=== PATIENT | male | born 1965 | race Caucasian/White ===

== ENCOUNTER 2017-02-14 23:37 | Emergency (ER) | payer SELFPAY ==
--- NOTE | 2017-02-14 23:59 | C.PDOC ---
History Of Present Illness 51 year old male brought in by EMS after being found intoxicated in public. Patient admits to drinking tonight; denies any injuries or physical complaints. Chief Complaint (Nursing): Substance Abuse History Per: Patient History/Exam Limitations: no limitations Onset/Duration Of Symptoms: Hrs Current Symptoms Are (Timing): Still Present Suicide/Self Injury Attempted (Context): None Modifying Factor(s): Alcohol Associated Symptoms: denies: Depression, Suicidal Thoughts, Suicidal Plan Involuntary Hold By: None Recent travel outside of the [place]: No Past Medical History Reviewed: Historical Data, Nursing Documentation, Vital Signs Vital Signs: Last Vital Signs Temp 98 F 02/15/17 03:53 Pulse 90 02/15/17 03:53 Resp 16 02/15/17 03:53 BP 160/86 H 02/15/17 03:53 Pulse Ox 98 02/15/17 03:53 - Medical History PMH: Asthma, HTN Surgical History: Appendectomy Family History: States: Unknown Family Hx - Social History Hx Tobacco Use: Yes Hx Alcohol Use: Yes Hx Substance Use: No - Immunization History Hx Tetanus Toxoid Vaccination: No Hx Influenza Vaccination: No Hx Pneumococcal Vaccination: No Review Of Systems Constitutional: Negative for: Fever, Chills Gastrointestinal: Negative for: Nausea, Vomiting, Diarrhea Physical Exam - Physical Exam Appears: Non-toxic, No Acute Distress, Other (ETOH on breath, arousable) Skin: Normal Color, Warm, Dry Head: Atraumatic, Normacephalic Eye(s): bilateral: Normal Inspection, PERRL, EOMI Oral Mucosa: Moist Neck: Normal, No Midline Cervical Tenderness, No Paracervical Tenderness, Supple Chest: Symmetrical Cardiovascular: Rhythm Regular Respiratory: Normal Breath Sounds, No Rales, No Rhonchi, No Wheezing Gastrointestinal/Abdominal: Soft, No Tenderness Neurological/Psych: Oriented x3, Normal Speech, Other (No focal deficits) ED Course And Treatment O2 Sat by Pulse Oximetry: 97 (Room air) Pulse Ox Interpretation: Normal Progress Note: Blood work and urinalysis ordered. Disposition Counseled Patient/Family Regarding: Diagnosis - Disposition Referrals: [facility] at [facility] [Outside] Disposition: HOME/ ROUTINE Disposition Time: 04:45 Condition: STABLE Instructions: Abuse of Alcohol (ED) Forms: [facility] (Yoruba) - POA Present On Arrival: None - Clinical Impression Clinical Impression: Alcohol abuse - Scribe Statement The provider has reviewed the documentation as recorded by the Scriblisa Lucas All medical record entries made by the Scribe were at my direction and personally dictated by me. I have reviewed the chart and agree that the record accurately reflects my personal performance of the history, physical exam, medical decision making, and the department course for this patient. I have also personally directed, reviewed, and agree with the discharge instructions and disposition.
[2017-02-15 04:46] VITALS: O2SAT 97
[2017-02-15 04:50] VITALS: BP 156/89; PULSE 88; RESP 18; TEMP 98.5
== END 2017-02-15 04:53 | disposition home or self-care (01) ==
LOC: C.ER 23:37
DX: F10.10 Alcohol abuse, uncomplicated (principal); Y90.9 Presence of alcohol in blood, level not specified

== ENCOUNTER 2017-02-18 15:43 | Emergency (ER) | payer SELFPAY ==
--- NOTE | 2017-02-18 16:52 | C.PDOC ---
History Of Present Illness 51 year old male with Hx of ETOH abuse BIBA for alcohol intoxication. Patient admits to drinking today; denies falls or injuries. Time Seen by Provider: 02/18/17 16:07 Chief Complaint (Nursing): Substance Abuse History Per: Patient History/Exam Limitations: intoxication Current Symptoms Are (Timing): Still Present Suicide/Self Injury Attempted (Context): None Modifying Factor(s): Alcohol Severity: Moderate Associated Symptoms: denies: Depression, Suicidal Thoughts, Suicidal Plan Involuntary Hold By: Emergency Physician Past Medical History Reviewed: Historical Data, Nursing Documentation, Vital Signs Vital Signs: Last Vital Signs Temp 97.9 F 02/18/17 16:54 Pulse 107 H 02/18/17 16:54 Resp 20 02/18/17 16:54 BP 104/64 02/18/17 16:54 Pulse Ox 94 L 02/18/17 18:54 - Medical History PMH: Asthma, HTN Surgical History: Appendectomy Family History: States: No Known Family Hx - Social History Hx Tobacco Use: Yes Hx Alcohol Use: Yes Hx Substance Use: No - Immunization History Hx Tetanus Toxoid Vaccination: No Hx Influenza Vaccination: No Hx Pneumococcal Vaccination: No Review Of Systems Except As Marked, All Systems Reviewed And Found Negative. Constitutional: Negative for: Fever, Chills Cardiovascular: Negative for: Chest Pain, Palpitations Respiratory: Negative for: Cough, Shortness of Breath Gastrointestinal: Negative for: Nausea, Vomiting, Abdominal Pain Skin: Negative for: Rash Neurological: Negative for: Weakness, Numbness Psych: Positive for: Other (alcohol intoxication). Negative for: Depression, Suicidal ideation Physical Exam - Physical Exam Appears: Non-toxic, Unkempt, Other ( ETOH smell on breath, appears intoxicated) Skin: Normal Color, Warm, Dry Head: Atraumatic, Normacephalic Eye(s): bilateral: Normal Inspection (right upper eyelid stye) Oral Mucosa: Moist Neck: Supple Cardiovascular: Rhythm Regular (Mild tachycardic) Respiratory: Normal Breath Sounds, No Rales, No Rhonchi, No Wheezing Gastrointestinal/Abdominal: Normal Exam, Bowel Sounds, Soft, No Tenderness Extremity: Normal ROM, No Swelling, No Other (No tremors) Extremity: Bilateral: Atraumatic Neurological/Psych: Other (awake, alert, intoxicated, moving all 4 extremities spontaneously) ED Course And Treatment O2 Sat by Pulse Oximetry: 94 (On RA) Pulse Ox Interpretation: Normal Progress Note: Accucheck ordered and reviewed - WNL. Patient pending sobriety. Disposition - Disposition Disposition Time: 19:00 Condition: STABLE Forms: [facility] (Sinhala) - Clinical Impression Clinical Impression: Alcohol intoxication - Scribe Statement The provider has reviewed the documentation as recorded by the Scribe Zeke Manzano All medical record entries made by the Scribe were at my direction and personally dictated by me. I have reviewed the chart and agree that the record accurately reflects my personal performance of the history, physical exam, medical decision making, and the department course for this patient. I have also personally directed, reviewed, and agree with the discharge instructions and disposition. Physician Patient Turnover Patient Signed Over To: Michelle Franklin Handoff Comments: pending sobriety
[2017-02-18 16:55] VITALS: TEMP 97.9
[2017-02-18 20:32] VITALS: BP 100/60; PULSE 97; RESP 14; O2SAT 96
== END 2017-02-18 21:05 | disposition home or self-care (01) ==
LOC: C.ER 15:43
DX: F10.129 Alcohol abuse with intoxication, unspecified (principal); Y90.9 Presence of alcohol in blood, level not specified

== ENCOUNTER 2017-02-20 16:52 | Emergency (ER) | payer SELFPAY ==
--- NOTE | 2017-02-20 18:21 | C.PDOC ---
History Of Present Illness 51 year old male brought to ED via BLS for alcohol intoxication. As per BLS, pt was found by restaurant head machinist laying on the side walk, then head machinist brought the patient into his restaurant and fed him. However, pt refused to leave after he was finished eating, and police was called. Patient appears intoxicated - denies any physical complaints at this time. Time Seen by Provider: 02/20/17 17:09 Chief Complaint (Nursing): Substance Abuse History Per: Patient, EMS History/Exam Limitations: intoxication Onset/Duration Of Symptoms: Unknown Current Symptoms Are (Timing): Still Present Suicide/Self Injury Attempted (Context): None Modifying Factor(s): Alcohol Severity: Moderate Associated Symptoms: denies: Suicidal Thoughts, Suicidal Plan Past Medical History Reviewed: Historical Data, Nursing Documentation, Vital Signs Vital Signs: Last Vital Signs Temp 97.3 F L 02/20/17 17:06 Pulse 96 H 02/20/17 17:06 Resp 18 02/20/17 17:06 BP 140/95 H 02/20/17 17:06 Pulse Ox 97 02/20/17 18:25 - Medical History PMH: Asthma, HTN Surgical History: Appendectomy Family History: States: No Known Family Hx - Social History Hx Tobacco Use: Yes Hx Alcohol Use: Yes Hx Substance Use: No - Immunization History Hx Tetanus Toxoid Vaccination: No Hx Influenza Vaccination: No Hx Pneumococcal Vaccination: No Review Of Systems Except As Marked, All Systems Reviewed And Found Negative. Constitutional: Negative for: Fever, Chills Cardiovascular: Negative for: Chest Pain, Palpitations Respiratory: Negative for: Cough, Shortness of Breath Gastrointestinal: Negative for: Nausea, Vomiting, Abdominal Pain Neurological: Negative for: Headache, Dizziness Psych: Positive for: Other (alcohol intoxication). Negative for: Suicidal ideation Physical Exam - Physical Exam Appears: Well, Non-toxic, No Acute Distress, Unkempt, Other (EtOH on breath, appears intoxicated ) Skin: Normal Color, Warm, Dry Head: Atraumatic, Normacephalic Eye(s): bilateral: Normal Inspection Oral Mucosa: Moist Cardiovascular: Rhythm Regular Respiratory: Normal Breath Sounds, No Rales, No Rhonchi, No Wheezing Gastrointestinal/Abdominal: Normal Exam, Bowel Sounds, Soft, No Tenderness Extremity: Normal ROM, No Deformity Neurological/Psych: Other (intoxicated, moving all 4 extremities spontaneously ) ED Course And Treatment O2 Sat by Pulse Oximetry: 97 (RA) Pulse Ox Interpretation: Normal Progress Note: Accucheck ordered and WNL. Patient pending sobriety. Disposition - Disposition Disposition Time: 19:00 Condition: STABLE Forms: [facility] (Algerian) - Clinical Impression Clinical Impression: Alcohol intoxication - Scribe Statement The provider has reviewed the documentation as recorded by the Scribe Benito Mai All medical record entries made by the Scribe were at my direction and personally dictated by me. I have reviewed the chart and agree that the record accurately reflects my personal performance of the history, physical exam, medical decision making, and the department course for this patient. I have also personally directed, reviewed, and agree with the discharge instructions and disposition. Physician Patient Turnover Patient Signed Over To: Geo Hassan Handoff Comments: pending sobriety
[2017-02-21 03:54] VITALS: BP 109/73; PULSE 92; RESP 16; TEMP 98.5; O2SAT 97
== END 2017-02-21 05:40 | disposition home or self-care (01) ==
LOC: C.ER 16:52
DX: F10.129 Alcohol abuse with intoxication, unspecified (principal); Y90.9 Presence of alcohol in blood, level not specified

== ENCOUNTER 2017-02-24 17:31 | Emergency (ER) | payer SELFPAY ==
--- NOTE | 2017-02-24 18:17 | C.PDOC ---
History Of Present Illness <Corona Irene - Last Filed: 02/24/17 18:16> <Geo Hassan - Last Filed: 03/02/17 14:28> 51 y/o male brought to ED by ems in an acute ETOH intoxication. Patient admits to drinking ETOH today and states he normally does everyday. No physical complaints at this time. (Corona Irene) History Per: Patient History/Exam Limitations: no limitations Onset/Duration Of Symptoms: Hrs Current Symptoms Are (Timing): Still Present Suicide/Self Injury Attempted (Context): None Modifying Factor(s): Alcohol <Corona Irene - Last Filed: 02/24/17 18:16> <Geo Hassan - Last Filed: 03/02/17 14:28> Time Seen by Provider: 02/24/17 18:08 Chief Complaint (Nursing): Substance Abuse Past Medical History Reviewed: Historical Data, Nursing Documentation, Vital Signs - Medical History PMH: Asthma, HTN Surgical History: Appendectomy Family History: States: No Known Family Hx - Social History Hx Tobacco Use: Yes Hx Alcohol Use: Yes Hx Substance Use: No - Immunization History Hx Tetanus Toxoid Vaccination: No Hx Influenza Vaccination: No Hx Pneumococcal Vaccination: No <Corona Irene - Last Filed: 02/24/17 18:16> Vital Signs: Last Vital Signs Temp 98 F 02/25/17 05:38 Pulse 79 02/25/17 05:38 Resp 16 02/25/17 05:38 BP 132/68 02/25/17 05:38 Pulse Ox 98 02/25/17 05:38 Review Of Systems Constitutional: Negative for: Fever, Chills Cardiovascular: Negative for: Chest Pain Respiratory: Negative for: Shortness of Breath Gastrointestinal: Negative for: Nausea, Vomiting Skin: Negative for: Rash Neurological: Negative for: Weakness, Numbness Psych: Negative for: Anxiety, Suicidal ideation, Withdrawal <Corona Irene - Last Filed: 02/24/17 18:16> Physical Exam - Physical Exam Appears: Non-toxic, No Acute Distress, Other (Poor hygiene, ETOH on breath ) Skin: Warm, Dry, No Rash Head: Atraumatic, Normacephalic Eye(s): bilateral: Normal Inspection Oral Mucosa: Moist Neck: Normal ROM, Supple Chest: Symmetrical Cardiovascular: Rhythm Regular Respiratory: Normal Breath Sounds, No Rales, No Rhonchi, No Wheezing Gastrointestinal/Abdominal: Soft, No Tenderness, No Guarding, No Rebound Extremity: Tenderness (bilateral knees secondary to chronic arthritis ), Capillary Refill (<2 seconds), No Deformity, No Swelling Pulses: Left Dorsalis Pedis: Normal, Right Dorsalis Pedis: Normal Neurological/Psych: Oriented x3, Normal Motor, Normal Sensation Gait: With Assistance (cane) <Corona Irene - Last Filed: 02/24/17 18:16> ED Course And Treatment O2 Sat by Pulse Oximetry: 96 (RA) Pulse Ox Interpretation: Normal <Corona Irene - Last Filed: 02/24/17 18:16> Disposition <Corona Irene - Last Filed: 02/24/17 18:16> Counseled Patient/Family Regarding: Studies Performed, Diagnosis, Need For Followup - Disposition Disposition Time: 06:00 <Geo Hassan - Last Filed: 03/02/17 14:28> - Disposition Disposition: HOME/ ROUTINE Condition: FAIR Instructions: Alcohol Intoxication (DC) Forms: [employer] (Yi) - Clinical Impression Clinical Impression: Alcohol intoxication - Scribe Statement The provider has reviewed the documentation as recorded by the Scribe <Corona Irene - Last Filed: 02/24/17 18:16> <Geo Hassan - Last Filed: 03/02/17 14:28> - Scribe Statement Rigoberto Fitzpatrick All medical record entries made by the Scribe were at my direction and personally dictated by me. I have reviewed the chart and agree that the record accurately reflects my personal performance of the history, physical exam, medical decision making, and the department course for this patient. I have also personally directed, reviewed, and agree with the discharge instructions and disposition. (Corona Irene)
[2017-02-24 22:18] VITALS: RESP 16; TEMP 98
[2017-02-25 05:39] VITALS: BP 132/68; PULSE 79; O2SAT 98
== END 2017-02-25 05:39 | disposition home or self-care (01) ==
LOC: C.ER 17:31
DX: F10.129 Alcohol abuse with intoxication, unspecified (principal); Y90.9 Presence of alcohol in blood, level not specified

== ENCOUNTER 2017-02-26 20:34 | Emergency (ER) | payer SELFPAY ==
[2017-02-26 21:16] VITALS: TEMP 98.9
--- NOTE | 2017-02-26 21:41 | C.PDOC ---
History Of Present Illness 51yo male, presents to ED with complaints of bilateral knee pain. Denies any injury or trauma. Also reports he is not drunk. Of note, patient is able to ambulate with a cane. He has no other medical complaints. Time Seen by Provider: 02/26/17 21:17 Chief Complaint (Nursing): Lower Extremity Problem/Injury History Per: Patient History/Exam Limitations: no limitations Onset/Duration Of Symptoms: Hrs Current Symptoms Are (Timing): Still Present Past Medical History Reviewed: Historical Data, Nursing Documentation, Vital Signs Vital Signs: Last Vital Signs Temp 98.9 F 02/26/17 21:13 Pulse 111 H 02/26/17 21:13 Resp 20 02/26/17 21:13 BP 129/77 02/26/17 21:13 Pulse Ox 95 02/26/17 21:53 - Medical History PMH: Asthma, HTN Surgical History: Appendectomy Family History: States: No Known Family Hx - Social History Hx Tobacco Use: Yes Hx Alcohol Use: Yes Hx Substance Use: No - Immunization History Hx Tetanus Toxoid Vaccination: No Hx Influenza Vaccination: No Hx Pneumococcal Vaccination: No Review Of Systems Except As Marked, All Systems Reviewed And Found Negative. Musculoskeletal: Positive for: Leg Pain (bilateral knee pain, no sign of acute injury) Physical Exam - Physical Exam Appears: No Acute Distress, Other (poor hygiene) Skin: Normal Color, Warm Head: Atraumatic, Normacephalic Nose: Normal Chest: Symmetrical Cardiovascular: Other (mild tachycardia) Respiratory: Normal Breath Sounds, No Accessory Muscle Use Extremity: Other (bilateral knee pain, ambulates with cane) ED Course And Treatment O2 Sat by Pulse Oximetry: 95 (RA) Pulse Ox Interpretation: Normal Progress Note: ambulatory' stable for discharge. Disposition - Disposition Disposition: HOME/ ROUTINE Disposition Time: 06:00 Condition: IMPROVED Forms: [facility] ([place]atican Citizen) - Clinical Impression Clinical Impression: Alcoholism, Arthritis, Alcohol abuse - Scribe Statement The provider has reviewed the documentation as recorded by the Alberto Marie Provider Attestation: All medical record entries made by the Ayeshaibe were at my direction and personally dictated by me. I have reviewed the chart and agree that the record accurately reflects my personal performance of the history, physical exam, medical decision making, and the department course for this patient. I have also personally directed, reviewed, and agree with the discharge instructions and disposition.
[2017-02-27 06:21] VITALS: RESP 18
[2017-02-27 06:22] VITALS: BP 132/66; PULSE 68; O2SAT 98
== END 2017-02-27 06:21 | disposition home or self-care (01) ==
LOC: C.ER 20:34
DX: M13.862 Other specified arthritis, left knee (principal); M13.861 Other specified arthritis, right knee; F10.20 Alcohol dependence, uncomplicated; Y90.9 Presence of alcohol in blood, level not specified

== ENCOUNTER 2017-03-06 20:00 | Emergency (ER) | payer SELFPAY ==
--- NOTE | 2017-03-06 20:44 | C.PDOC ---
History Of Present Illness 51 year old male is brought to the ED by EMS because he was found sleeping in a bank. Patient denies any SOB, CP, nausea, vomit, diarrhea, dizziness, Si/HI, hallucinations. Upon arrival patient is intoxicated with ETOH on his breath. Time Seen by Provider: 03/06/17 20:29 Chief Complaint (Nursing): Substance Abuse History Per: Patient, EMS History/Exam Limitations: intoxication Onset/Duration Of Symptoms: Hrs Current Symptoms Are (Timing): Still Present Suicide/Self Injury Attempted (Context): None Modifying Factor(s): Alcohol Associated Symptoms: denies: Depression, Suicidal Thoughts, Suicidal Plan Involuntary Hold By: None Recent travel outside of the [place]: No Additional History Per: Patient, EMS Past Medical History Reviewed: Historical Data, Nursing Documentation, Vital Signs Vital Signs: Last Vital Signs Temp 97.7 F 03/07/17 00:00 Pulse 81 03/07/17 00:00 Resp 18 03/07/17 00:00 BP 141/82 03/07/17 00:00 Pulse Ox 98 03/07/17 00:00 - Medical History PMH: Asthma, HTN Surgical History: Appendectomy Family History: States: Unknown Family Hx - Social History Hx Tobacco Use: Yes Hx Alcohol Use: Yes Hx Substance Use: No - Immunization History Hx Tetanus Toxoid Vaccination: No Hx Influenza Vaccination: No Hx Pneumococcal Vaccination: No Review Of Systems Constitutional: Negative for: Fever, Chills Cardiovascular: Negative for: Chest Pain, Palpitations Respiratory: Negative for: Cough, Shortness of Breath Gastrointestinal: Negative for: Nausea, Vomiting, Abdominal Pain Skin: Negative for: Rash Neurological: Negative for: Weakness, Numbness Physical Exam - Physical Exam Appears: Non-toxic, Other (Intoxicated) Skin: Normal Color, Warm, Dry Head: Atraumatic, Normacephalic Nose: No Discharge Oral Mucosa: Moist Neck: Normal ROM, Supple Chest: Symmetrical Cardiovascular: Rhythm Regular, No Murmur Respiratory: Normal Breath Sounds, No Rales, No Rhonchi, No Wheezing Gastrointestinal/Abdominal: Soft, No Tenderness Extremity: Normal ROM, No Pedal Edema, No Calf Tenderness, No Deformity, No Swelling Neurological/Psych: Oriented x3 Gait: Steady ED Course And Treatment O2 Sat by Pulse Oximetry: 98 (On RA) Pulse Ox Interpretation: Normal Disposition - Disposition Referrals: Non [facility] Provider, [Primary Care Provider] - Disposition: HOME/ ROUTINE Disposition Time: 06:00 Condition: IMPROVED Forms: [facility] (Costa Rican), Accompanied To ED By: - Clinical Impression Clinical Impression: Alcoholism - Scribe Statement The provider has reviewed the documentation as recorded by the Scribe Zeke Manzano All medical record entries made by the Scribe were at my direction and personally dictated by me. I have reviewed the chart and agree that the record accurately reflects my personal performance of the history, physical exam, medical decision making, and the department course for this patient. I have also personally directed, reviewed, and agree with the discharge instructions and disposition.
[2017-03-07 05:33] VITALS: RESP 20
[2017-03-07 06:48] VITALS: BP 146/72; PULSE 88; TEMP 98.3; O2SAT 97
== END 2017-03-07 06:23 | disposition home or self-care (01) ==
LOC: SUPCPDRO 20:00 → C.ER 20:00
DX: F10.20 Alcohol dependence, uncomplicated (principal); Y90.9 Presence of alcohol in blood, level not specified

== ENCOUNTER 2017-03-08 18:16 | Emergency (ER) | payer SELFPAY ==
--- NOTE | 2017-03-08 19:12 | C.PDOC ---
History Of Present Illness Patient presents to the ER via EMS for public intoxication. Denies physical complaints at this time. Time Seen by Provider: 03/08/17 19:11 Chief Complaint (Nursing): Substance Abuse History Per: Patient History/Exam Limitations: no limitations Onset/Duration Of Symptoms: Hrs Current Symptoms Are (Timing): Still Present Suicide/Self Injury Attempted (Context): None Modifying Factor(s): Alcohol Severity: None Pain Scale Rating Of: 0 Associated Symptoms: denies: Depression, Suicidal Thoughts, Suicidal Plan Involuntary Hold By: None Recent travel outside of the [place]: No Past Medical History Reviewed: Historical Data, Nursing Documentation, Vital Signs Vital Signs: Last Vital Signs Temp 98.8 F 03/09/17 03:29 Pulse 97 H 03/09/17 03:29 Resp 18 03/09/17 03:29 BP 146/88 03/09/17 03:29 Pulse Ox 95 03/09/17 03:29 - Medical History PMH: Asthma, HTN Surgical History: Appendectomy Family History: States: No Known Family Hx - Social History Hx Tobacco Use: Yes Hx Alcohol Use: Yes Hx Substance Use: No - Immunization History Hx Tetanus Toxoid Vaccination: No Hx Influenza Vaccination: No Hx Pneumococcal Vaccination: No Review Of Systems Constitutional: Negative for: Fever, Chills Gastrointestinal: Negative for: Nausea, Vomiting, Diarrhea Physical Exam - Physical Exam Appears: Non-toxic, No Acute Distress, Other (ETOH on breath) Skin: Warm, Dry Head: Normacephalic Oral Mucosa: Moist Chest: Symmetrical, No Tenderness Cardiovascular: Rhythm Regular Respiratory: No Rales, No Rhonchi, No Wheezing Gastrointestinal/Abdominal: Soft, No Tenderness Neurological/Psych: Oriented x3 ED Course And Treatment O2 Sat by Pulse Oximetry: 97 (Room air) Pulse Ox Interpretation: Normal Reevaluation Time: 04:51 Reassessment Condition: Improved Disposition Counseled Patient/Family Regarding: Studies Performed, Diagnosis, Need For Followup - Disposition Referrals: [facility] [Outside] Disposition: HOME/ ROUTINE Disposition Time: 19:12 Condition: FAIR Instructions: Alcohol Intoxication (DC) Forms: [facility] ([place]) - Clinical Impression Clinical Impression: Alcohol intoxication - Scribe Statement The provider has reviewed the documentation as recorded by the Scribe Rob Lucas All medical record entries made by the Scribe were at my direction and personally dictated by me. I have reviewed the chart and agree that the record accurately reflects my personal performance of the history, physical exam, medical decision making, and the department course for this patient. I have also personally directed, reviewed, and agree with the discharge instructions and disposition.
[2017-03-08 22:10] VITALS: RESP 18
[2017-03-09 01:03] VITALS: TEMP 98.8
[2017-03-09 03:30] VITALS: BP 146/88; PULSE 97
[2017-03-09 04:51] VITALS: O2SAT 97
== END 2017-03-09 05:41 | disposition home or self-care (01) ==
LOC: C.ER 18:16
DX: F10.129 Alcohol abuse with intoxication, unspecified (principal); Y90.9 Presence of alcohol in blood, level not specified

== ENCOUNTER → 2017-03-09 18:34 | Emergency (ER) | payer SELFPAY | END | disposition left against medical advice (07) | LOC: C.ER 18:34 | DX: Z02.89 Encounter for other administrative examinations (principal); Z00.00 Encounter for general adult medical examination without abnormal findings ==

== ENCOUNTER 2017-03-23 19:46 | Emergency (ER) | payer SELFPAY ==
[2017-03-23 21:00] VITALS: PULSE 93; RESP 20; TEMP 98.2; O2SAT 95
== END 2017-03-23 20:57 | disposition left against medical advice (07) ==
LOC: C.ER 19:46
DX: F10.129 Alcohol abuse with intoxication, unspecified (principal); Z02.9 Encounter for administrative examinations, unspecified

== ENCOUNTER 2017-03-25 21:11 | Emergency (ER) | payer SELFPAY ==
--- NOTE | 2017-03-25 22:03 | C.PDOC ---
History Of Present Illness Patient brought in to ER after being found intoxicated in public. Denies any recent trauma or physical complaints. Time Seen by Provider: 03/25/17 22:03 Chief Complaint (Nursing): Substance Abuse History Per: Patient, EMS History/Exam Limitations: no limitations Onset/Duration Of Symptoms: Hrs Current Symptoms Are (Timing): Still Present Suicide/Self Injury Attempted (Context): None Modifying Factor(s): Alcohol Severity: None Pain Scale Rating Of: 0 Associated Symptoms: denies: Depression, Suicidal Thoughts, Suicidal Plan Involuntary Hold By: None Recent travel outside of the [place]: No Past Medical History Reviewed: Historical Data, Nursing Documentation, Vital Signs Vital Signs: Last Vital Signs Temp 97.5 F L 03/26/17 02:59 Pulse 82 03/26/17 02:59 Resp 18 03/26/17 02:59 BP 149/97 H 03/26/17 02:59 Pulse Ox 95 03/26/17 02:59 - Medical History PMH: Asthma, HTN Surgical History: Appendectomy Family History: States: No Known Family Hx - Social History Hx Tobacco Use: Yes Hx Alcohol Use: Yes Hx Substance Use: No - Immunization History Hx Tetanus Toxoid Vaccination: No Hx Influenza Vaccination: No Hx Pneumococcal Vaccination: No Review Of Systems Constitutional: Negative for: Fever, Chills Gastrointestinal: Negative for: Nausea, Vomiting, Diarrhea Physical Exam - Physical Exam Appears: Non-toxic, No Acute Distress, Other (ETOH on breath, no evidence of trauma) Skin: Warm, Dry Head: Normacephalic Oral Mucosa: Moist Chest: Symmetrical, No Tenderness Cardiovascular: Rhythm Regular Respiratory: No Rales, No Rhonchi, No Wheezing Gastrointestinal/Abdominal: Soft, No Tenderness Neurological/Psych: Oriented x3 ED Course And Treatment O2 Sat by Pulse Oximetry: 95 Pulse Ox Interpretation: Normal Disposition Counseled Patient/Family Regarding: Studies Performed, Diagnosis, Need For Followup - Disposition Referrals: [facility] at [facility] [Outside] Disposition: HOME/ ROUTINE Disposition Time: 22:03 Condition: FAIR Forms: [facility] (Armenian), General Discharge Instructions - Clinical Impression Clinical Impression: Alcohol abuse - Scribe Statement The provider has reviewed the documentation as recorded by the Scribe Rob Lucas All medical record entries made by the Scribe were at my direction and personally dictated by me. I have reviewed the chart and agree that the record accurately reflects my personal performance of the history, physical exam, medical decision making, and the department course for this patient. I have also personally directed, reviewed, and agree with the discharge instructions and disposition.
[2017-03-26 03:00] VITALS: RESP 18; O2SAT 95
[2017-03-26 05:39] VITALS: BP 134/77; PULSE 100; TEMP 98.8
== END 2017-03-26 06:03 | disposition home or self-care (01) ==
LOC: C.ER 21:11
DX: F10.10 Alcohol abuse, uncomplicated (principal); Y90.9 Presence of alcohol in blood, level not specified

== ENCOUNTER 2017-04-15 15:54 | Emergency (ER) | payer SELFPAY ==
[2017-04-15 16:44] VITALS: BP 104/76; PULSE 94; RESP 15; TEMP 98.3; O2SAT 95
--- NOTE | 2017-04-15 19:07 | C.PDOC ---
History Of Present Illness Pt was BIBEMS due to public alcohol intoxication. Time Seen by Provider: 04/15/17 17:25 Chief Complaint (Nursing): Substance Abuse History Per: Patient, EMS History/Exam Limitations: intoxication Onset/Duration Of Symptoms: Unknown Current Symptoms Are (Timing): Still Present Suicide/Self Injury Attempted (Context): None Modifying Factor(s): Alcohol Severity: Moderate Associated Symptoms: denies: Suicidal Thoughts, Suicidal Plan Additional History Per: Prior Records Past Medical History Reviewed: Historical Data, Nursing Documentation, Vital Signs Vital Signs: Last Vital Signs Temp 98.3 F 04/15/17 16:38 Pulse 94 H 04/15/17 16:38 Resp 15 04/15/17 16:38 BP 104/76 04/15/17 16:38 Pulse Ox 95 04/15/17 16:38 - Medical History PMH: Asthma, HTN Other PMH: Alcohol abuse Surgical History: Appendectomy Family History: States: Unknown Family Hx - Social History Hx Tobacco Use: Yes Hx Alcohol Use: Yes Hx Substance Use: No - Immunization History Hx Tetanus Toxoid Vaccination: No Hx Influenza Vaccination: No Hx Pneumococcal Vaccination: No Review Of Systems Review Of Systems: ROS cannot be obtained secondary to pt's inabilty to answer questions. Physical Exam - Physical Exam Appears: No Acute Distress, Unkempt, Other (AOB) Skin: Normal Color, Warm, Dry Head: Atraumatic Eye(s): bilateral: PERRL Neck: Normal ROM, No Midline Cervical Tenderness, No Step Off Deformity, Supple Cardiovascular: Rhythm Regular Respiratory: Normal Breath Sounds, No Accessory Muscle Use Gastrointestinal/Abdominal: Soft, No Tenderness Extremity: Normal ROM, No Deformity Neurological/Psych: Oriented x3, Normal Motor, Normal Sensation Gait: Unable To Assess ED Course And Treatment O2 Sat by Pulse Oximetry: 95 Pulse Ox Interpretation: Normal Progress Note: Pt is now AAOx3. Steady gait. Clinically sober. Reevaluation Time: 19:06 Reassessment Condition: Improved Disposition Counseled Patient/Family Regarding: Diagnosis, Need For Followup - Disposition Referrals: [facility] [Outside] Disposition: HOME/ ROUTINE Disposition Time: 19:07 Condition: IMPROVED Additional Instructions: Avoid alcohol. Follow up with your doctor or in the clinic. Return to the ER if you develop worsening of symptoms or if you have any other concerns. Instructions: Abuse of Alcohol (ED) - Clinical Impression Clinical Impression: Alcohol abuse
== END 2017-04-15 19:12 | disposition home or self-care (01) ==
LOC: C.ER 15:54
DX: F10.10 Alcohol abuse, uncomplicated (principal); Y90.9 Presence of alcohol in blood, level not specified

== ENCOUNTER 2017-04-17 00:13 | Emergency (ER) | payer SELFPAY ==
[2017-04-17 00:28] VITALS: RESP 18; TEMP 97.6
--- NOTE | 2017-04-17 02:17 | C.PDOC ---
History Of Present Illness 51 year old male is brought in to the ED for intoxication. Patient admits to heavy drinking tonight, has a small abrasion on his right hand. Patient is alert , ambulating with no difficulty. Patient denies SI/HI, hallucinations, SOB, CP, headache, weakness, numbness. Chief Complaint (Nursing): Substance Abuse History Per: Patient, EMS History/Exam Limitations: no limitations Onset/Duration Of Symptoms: Hrs Current Symptoms Are (Timing): Still Present Suicide/Self Injury Attempted (Context): None Modifying Factor(s): Alcohol Associated Symptoms: denies: Depression, Suicidal Thoughts, Suicidal Plan Recent travel outside of the [place]: No Additional History Per: Patient, EMS Past Medical History Reviewed: Historical Data, Nursing Documentation, Vital Signs Vital Signs: Last Vital Signs Temp 97.6 F 04/17/17 00:16 Pulse 88 04/17/17 03:31 Resp 18 04/17/17 03:31 BP 112/72 04/17/17 03:31 Pulse Ox 96 04/17/17 04:19 - Medical History PMH: Asthma, HTN (NO MEDS PER PT) Denies: Chronic Kidney Disease Surgical History: Appendectomy, Tonsillectomy Family History: States: Unknown Family Hx - Social History Hx Tobacco Use: Yes Hx Alcohol Use: Yes Hx Substance Use: No - Immunization History Hx Tetanus Toxoid Vaccination: No Hx Influenza Vaccination: No Hx Pneumococcal Vaccination: No Review Of Systems Constitutional: Negative for: Fever, Chills Cardiovascular: Negative for: Chest Pain, Palpitations Respiratory: Negative for: Cough, Shortness of Breath Gastrointestinal: Negative for: Nausea, Vomiting, Abdominal Pain Skin: Negative for: Rash Neurological: Negative for: Weakness, Numbness Psych: Negative for: Depression, Suicidal ideation Physical Exam - Physical Exam Appears: Non-toxic, Other (AOB) Skin: Normal Color, Warm, Dry Head: Atraumatic, Normacephalic Eye(s): bilateral: Normal Inspection Nose: No Discharge, No Deformity Oral Mucosa: Moist Neck: Normal ROM, Supple Chest: Symmetrical Cardiovascular: Rhythm Regular, No Murmur Respiratory: Normal Breath Sounds, No Rales, No Rhonchi, No Wheezing Gastrointestinal/Abdominal: Soft, No Tenderness, No Guarding, No Rebound Extremity: Normal ROM, Capillary Refill (< 2seconds), No Deformity, No Swelling , Other (Abrasion right hand) Pulses: Left Radial: Normal, Right Radial: Normal Neurological/Psych: Oriented x3, Normal Speech, Normal Cognition Gait: Steady ED Course And Treatment O2 Sat by Pulse Oximetry: 96 (On RA) Pulse Ox Interpretation: Normal Medical Decision Making Medical Decision Making: Impression: alcohol intoxication Disposition Counseled Patient/Family Regarding: Diagnosis - Disposition Referrals: [facility] at [facility] [place] [Outside] Disposition: HOME/ ROUTINE Disposition Time: 05:20 Condition: STABLE Instructions: Abuse of Alcohol (ED) Forms: [employer] (Armenian) - POA Present On Arrival: None - Clinical Impression Clinical Impression: Alcohol abuse, Alcohol intoxication - Scribe Statement The provider has reviewed the documentation as recorded by the Scribe Zeke Manzano All medical record entries made by the Scribe were at my direction and personally dictated by me. I have reviewed the chart and agree that the record accurately reflects my personal performance of the history, physical exam, medical decision making, and the department course for this patient. I have also personally directed, reviewed, and agree with the discharge instructions and disposition.
[2017-04-17 03:36] VITALS: BP 112/72; PULSE 88
[2017-04-17 04:19] VITALS: O2SAT 96
== END 2017-04-17 05:40 | disposition home or self-care (01) ==
LOC: C.ER 00:13
DX: F10.129 Alcohol abuse with intoxication, unspecified (principal); Y90.9 Presence of alcohol in blood, level not specified

== ENCOUNTER 2017-04-21 16:18 | Emergency (ER) | payer SELFPAY ==
[2017-04-21 16:40] VITALS: RESP 16; O2SAT 98
--- NOTE | 2017-04-21 17:21 | C.PDOC ---
History Of Present Illness 51 y/o male, brought in by ambulance, presents to the ER for ETOH abuse. Patient states that he would like to stay in the hospital because he cannot find another place for [facility]. Patient does not have any physical complaints. Time Seen by Provider: 04/21/17 16:46 Chief Complaint (Nursing): Substance Abuse History Per: Patient History/Exam Limitations: no limitations Onset/Duration Of Symptoms: Hrs Current Symptoms Are (Timing): Still Present Severity: Moderate Past Medical History Reviewed: Historical Data, Nursing Documentation, Vital Signs Vital Signs: Last Vital Signs Temp 98 F 04/21/17 19:33 Pulse 90 04/21/17 19:33 Resp 16 04/21/17 19:33 BP 140/75 04/21/17 19:33 Pulse Ox 98 04/21/17 19:33 - Medical History PMH: Asthma, HTN (NO MEDS PER PT) Denies: Chronic Kidney Disease Surgical History: Appendectomy, Tonsillectomy Family History: States: No Known Family Hx - Social History Hx Tobacco Use: Yes Hx Alcohol Use: Yes Hx Substance Use: No - Immunization History Hx Tetanus Toxoid Vaccination: No Hx Influenza Vaccination: No Hx Pneumococcal Vaccination: No Review Of Systems Constitutional: Negative for: Fever, Chills Eyes: Negative for: Pain, Vision Change Cardiovascular: Negative for: Chest Pain, Palpitations Respiratory: Negative for: Cough, Shortness of Breath Gastrointestinal: Negative for: Nausea, Vomiting, Abdominal Pain Skin: Negative for: Rash, Lesions Neurological: Negative for: Weakness, Numbness, Incoordination, Altered Mental Status Physical Exam - Physical Exam Appears: No Acute Distress, Other (drunk) Skin: Normal Color, Warm Head: Atraumatic, Normacephalic Eye(s): bilateral: Normal Inspection Nose: Normal Oral Mucosa: Moist Neck: Supple Cardiovascular: Rhythm Regular Respiratory: Normal Breath Sounds, No Accessory Muscle Use, No Rhonchi, No Wheezing Extremity: Normal ROM Neurological/Psych: Oriented x3, Normal Speech, Normal Motor, Normal Sensation ED Course And Treatment O2 Sat by Pulse Oximetry: 98 (RA) Pulse Ox Interpretation: Normal Reevaluation Time: 00:32 Reassessment Condition: Improved (Patient continues to sleep quietly.) Disposition - Disposition Disposition Time: 00:32 Condition: IMPROVED - Clinical Impression Clinical Impression: Alcohol intoxication, Alcohol intoxication - Scribe Statement The provider has reviewed the documentation as recorded by the Ayeshaibe Pamella Marie Provider Attestation: All medical record entries made by the Scribe were at my direction and personally dictated by me. I have reviewed the chart and agree that the record accurately reflects my personal performance of the history, physical exam, medical decision making, and the department course for this patient. I have also personally directed, reviewed, and agree with the discharge instructions and disposition. Physician Patient Turnover Patient Signed Over To: Geo Hassan Handoff Comments: pending sobriety
[2017-04-21 19:34] VITALS: TEMP 98
[2017-04-22 05:31] VITALS: BP 140/70; PULSE 85
== END 2017-04-22 05:31 | disposition home or self-care (01) ==
LOC: C.ER 16:18
DX: F10.129 Alcohol abuse with intoxication, unspecified (principal); Y90.9 Presence of alcohol in blood, level not specified

== ENCOUNTER 2017-05-13 22:21 | Emergency (ER) | payer SELFPAY ==
[2017-05-13 22:40] VITALS: RESP 20
--- NOTE | 2017-05-14 00:01 | C.PDOC ---
History Of Present Illness Local homeless alcoholic brought in by EMS for evaluation as patient was found to be sleeping in a bank. Patient has had multiple prior evaluations for alcohol intoxications. He denies any fever, chills, chest pain, shortness of breath. No medical complaints. Time Seen by Provider: 05/13/17 23:43 Chief Complaint (Nursing): Lower Extremity Problem/Injury History Per: EMS History/Exam Limitations: no limitations Onset/Duration Of Symptoms: Persistent Past Medical History Reviewed: Historical Data, Nursing Documentation, Vital Signs Vital Signs: Last Vital Signs Temp 98.2 F 05/14/17 00:06 Pulse 89 05/14/17 00:06 Resp 20 05/14/17 00:06 BP 131/79 05/14/17 00:06 Pulse Ox 98 05/14/17 00:06 - Medical History PMH: Asthma, HTN (NO MEDS PER PT) Denies: Chronic Kidney Disease Surgical History: Appendectomy, Tonsillectomy Family History: States: Unknown Family Hx - Social History Hx Tobacco Use: Yes Hx Alcohol Use: Yes Hx Substance Use: No - Immunization History Hx Tetanus Toxoid Vaccination: No Hx Influenza Vaccination: No Hx Pneumococcal Vaccination: No Review Of Systems Except As Marked, All Systems Reviewed And Found Negative. Constitutional: Negative for: Fever, Chills Cardiovascular: Negative for: Chest Pain Respiratory: Negative for: Shortness of Breath Physical Exam - Physical Exam Appears: No Acute Distress, Unkempt (disheveled) Skin: Normal Color Head: Atraumatic, Normacephalic Eye(s): bilateral: Normal Inspection Neck: Normal ROM, Supple Cardiovascular: Rhythm Regular Respiratory: Normal Breath Sounds Extremity: Normal ROM Neurological/Psych: Oriented x3 Gait: Steady ED Course And Treatment O2 Sat by Pulse Oximetry: 95 (RA) Pulse Ox Interpretation: Normal Medical Decision Making Medical Decision Making: typical alcohol abuse/malingering no new issues. Disposition Doctor Will See Patient In The: Office Counseled Patient/Family Regarding: Studies Performed, Diagnosis - Disposition Referrals: Alcoholics Anonymous [Outside] [facility] [Outside] [facility] [Outside] [facility] [Outside] Disposition: HOME/ ROUTINE Disposition Time: 00:00 Condition: GOOD Instructions: Alcohol Abuse and Alcoholism (DC) Forms: [email or web address] (Ugandan) - Clinical Impression Clinical Impression: Alcohol abuse - Scribe Statement The provider has reviewed the documentation as recorded by the Scribe (Sherin Barone) Provider Attestation: All medical record entries made by the Ayeshaibe were at my direction and personally dictated by me. I have reviewed the chart and agree that the record accurately reflects my personal performance of the history, physical exam, medical decision making, and the department course for this patient. I have also personally directed, reviewed, and agree with the discharge instructions and disposition.
[2017-05-14 00:17] VITALS: BP 131/79; PULSE 89; TEMP 98.2
[2017-05-14 00:28] VITALS: O2SAT 95
== END 2017-05-14 00:19 | disposition home or self-care (01) ==
LOC: C.ER 22:21
DX: F10.10 Alcohol abuse, uncomplicated (principal); Y90.9 Presence of alcohol in blood, level not specified

== ENCOUNTER 2017-05-21 12:36 | Emergency (ER) | payer SELFPAY ==
--- NOTE | 2017-05-21 13:42 | C.PDOC ---
History Of Present Illness 52 yr old male brought in via EMS, presents to the ER for alcohol intoxication. ROS is unavailable, patient refuses to answer questions. Time Seen by Provider: 05/21/17 13:04 Chief Complaint (Nursing): Substance Abuse History Per: EMS History/Exam Limitations: intoxication Modifying Factor(s): Alcohol Past Medical History Reviewed: Historical Data, Nursing Documentation, Vital Signs Vital Signs: Last Vital Signs Temp 98.0 F 05/21/17 22:30 Pulse 98 H 05/21/17 22:30 Resp 19 05/21/17 22:30 BP 105/64 05/21/17 22:30 Pulse Ox 95 05/21/17 22:30 - Medical History PMH: Asthma, HTN (NO MEDS PER PT) Surgical History: Appendectomy, Tonsillectomy Family History: States: No Known Family Hx - Social History Hx Tobacco Use: Yes Hx Alcohol Use: Yes Hx Substance Use: No - Immunization History Hx Tetanus Toxoid Vaccination: No Hx Influenza Vaccination: No Hx Pneumococcal Vaccination: No Review Of Systems Review Of Systems: ROS cannot be obtained secondary to pt's inabilty to answer questions. Physical Exam - Physical Exam Appears: Non-toxic, No Acute Distress, Unkempt, Other (+ alcohol odor) Skin: Warm, Dry Respiratory: Normal Breath Sounds, No Rales, No Rhonchi, No Stridor, No Wheezing Extremity: No Swelling Neurological/Psych: Other (patient responses to painful stimuli) ED Course And Treatment O2 Sat by Pulse Oximetry: 97 (RA) Pulse Ox Interpretation: Normal Medical Decision Making Medical Decision Making: suspect etoh intox - pt sleeping in no acute distress. 15:00 Pt reassessed: sleeping in no acute distress. 18:52 Pt reassessed and is sleeping comfortably, snoring in the hallway. 10:00 Patient is sleeping with no acute distress. 1100: awake alert ambulatory 11 hour obs clinical sober. stable for dc Disposition - Disposition Referrals: Alcoholics Anonymous [Outside] Disposition: HOME/ ROUTINE Disposition Time: 11:00 Condition: STABLE Additional Instructions: return to er with worsening symptoms or concerns. Instructions: Alcohol Abuse and Alcoholism (DC) Forms: [employer] (New Zealander) - Clinical Impression Clinical Impression: Alcohol intoxication - Scribe Statement The provider has reviewed the documentation as recorded by the Alberto Hyde Provider Attestation: All medical record entries made by the Scribe were at my direction and personally dictated by me. I have reviewed the chart and agree that the record accurately reflects my personal performance of the history, physical exam, medical decision making, and the department course for this patient. I have also personally directed, reviewed, and agree with the discharge instructions and disposition.
[2017-05-21 19:54] VITALS: RESP 19
[2017-05-21 22:32] VITALS: BP 105/64; PULSE 98; TEMP 98
[2017-05-21 23:28] VITALS: O2SAT 97
== END 2017-05-21 23:00 | disposition home or self-care (01) ==
LOC: C.ER 12:36
DX: F10.129 Alcohol abuse with intoxication, unspecified (principal); I10 Essential (primary) hypertension; Z72.0 Tobacco use

== ENCOUNTER 2017-05-26 21:15 | Emergency (ER) | payer SELFPAY ==
--- NOTE | 2017-05-27 00:15 | C.PDOC ---
History Of Present Illness The patient presents to the ED with alcohol intoxication for an unknown duration. Patient admits to drinking earlier today and is now requesting a place to sleep for the night. Patient denies suicidal/homicidal ideation and has no other complaints at this time. Time Seen by Provider: 05/27/17 00:14 Chief Complaint (Nursing): Substance Abuse History Per: Patient History/Exam Limitations: intoxication Onset/Duration Of Symptoms: Hrs Current Symptoms Are (Timing): Still Present Suicide/Self Injury Attempted (Context): None Modifying Factor(s): Alcohol Severity: None Pain Scale Rating Of: 0 Associated Symptoms: denies: Suicidal Thoughts, Suicidal Plan Involuntary Hold By: None Recent travel outside of the [place]: No Additional History Per: Patient Past Medical History Reviewed: Historical Data, Nursing Documentation, Vital Signs Vital Signs: Last Vital Signs Temp 98.5 F 05/26/17 23:53 Pulse 99 H 05/26/17 23:53 Resp 18 05/26/17 23:53 BP 126/73 05/26/17 23:53 Pulse Ox 96 05/27/17 00:45 - Medical History PMH: Asthma, HTN (NO MEDS PER PT) Denies: Chronic Kidney Disease Surgical History: Appendectomy, Tonsillectomy Family History: States: Unknown Family Hx - Social History Hx Tobacco Use: Yes Hx Alcohol Use: Yes Hx Substance Use: No - Immunization History Hx Tetanus Toxoid Vaccination: No Hx Influenza Vaccination: No Hx Pneumococcal Vaccination: No Review Of Systems Constitutional: Negative for: Fever, Chills Cardiovascular: Negative for: Chest Pain, Palpitations Respiratory: Negative for: Cough, Shortness of Breath Gastrointestinal: Negative for: Nausea, Vomiting Skin: Negative for: Rash, Lesions, Jaundice, Bruising Psych: Positive for: Other (EtOH intoxication ). Negative for: Suicidal ideation Physical Exam - Physical Exam Appears: No Acute Distress, Other (visibly intoxicated ) Skin: Warm, Dry Head: Normacephalic Eye(s): bilateral: Normal Inspection Oral Mucosa: Moist, Other (alcohol on breath ) Neck: Supple Chest: Symmetrical, No Deformity, No Tenderness Cardiovascular: Rhythm Regular, No Murmur Respiratory: No Rales, No Rhonchi, No Wheezing Extremity: Normal ROM, Capillary Refill (less than 2 seconds ) Neurological/Psych: Other (awake, alert and arousable to touch and verbal stimuli ) Gait: Unsteady ED Course And Treatment O2 Sat by Pulse Oximetry: 96 (on RA ) Pulse Ox Interpretation: Normal Reevaluation Time: 06:01 Reassessment Condition: Improved Disposition Counseled Patient/Family Regarding: Studies Performed, Diagnosis - Disposition Referrals: [facility] [Outside] Disposition: HOME/ ROUTINE Disposition Time: 00:15 Condition: FAIR Forms: [employer] (Setswana), General Discharge Instructions - Clinical Impression Clinical Impression: Alcohol abuse - Scribe Statement The provider has reviewed the documentation as recorded by the Scribe (Kate Mai) Provider Attestation: All medical record entries made by the Scribe were at my direction and personally dictated by me. I have reviewed the chart and agree that the record accurately reflects my personal performance of the history, physical exam, medical decision making, and the department course for this patient. I have also personally directed, reviewed, and agree with the discharge instructions and disposition.
[2017-05-27 06:15] VITALS: BP 128/70; PULSE 72; RESP 20; TEMP 98; O2SAT 98
== END 2017-05-27 06:12 | disposition home or self-care (01) ==
LOC: C.ER 21:15
DX: F10.10 Alcohol abuse, uncomplicated (principal); I10 Essential (primary) hypertension; Z72.0 Tobacco use

== ENCOUNTER → 2017-06-01 14:36 | Emergency (ER) | payer SELFPAY | END | disposition left against medical advice (07) | LOC: C.ER 14:36 | DX: Z02.89 Encounter for other administrative examinations (principal); F10.10 Alcohol abuse, uncomplicated ==

== ENCOUNTER 2017-06-10 20:38 | Emergency (ER) | payer SELFPAY ==
--- NOTE | 2017-06-10 20:57 | C.PDOC ---
History Of Present Illness The patient presents to the ED requesting a place to sleep for the night. Patient admits he has been drinking. Patient states he sustained old bruises over his right eyelid and nasal bridge a couple days ago. He denies any recent trauma and suicidal/homicidal ideation at this time. Time Seen by Provider: 06/10/17 20:56 Chief Complaint (Nursing): Substance Abuse History Per: Patient History/Exam Limitations: intoxication Onset/Duration Of Symptoms: Hrs Current Symptoms Are (Timing): Still Present Suicide/Self Injury Attempted (Context): None Modifying Factor(s): Alcohol Severity: None Pain Scale Rating Of: 0 Associated Symptoms: denies: Suicidal Thoughts, Suicidal Plan Involuntary Hold By: None Recent travel outside of the [place]: No Additional History Per: Patient Past Medical History Reviewed: Historical Data, Nursing Documentation, Vital Signs Vital Signs: Last Vital Signs Temp 97.7 F 06/11/17 02:31 Pulse 86 06/11/17 02:31 Resp 18 06/11/17 02:31 BP 120/75 06/11/17 02:31 Pulse Ox 96 06/11/17 02:31 - Medical History PMH: Asthma, HTN (NO MEDS PER PT) Denies: Chronic Kidney Disease Surgical History: Appendectomy, Tonsillectomy Family History: States: Unknown Family Hx - Social History Hx Tobacco Use: Yes Hx Alcohol Use: Yes Hx Substance Use: No - Immunization History Hx Tetanus Toxoid Vaccination: No Hx Influenza Vaccination: No Hx Pneumococcal Vaccination: No Review Of Systems Constitutional: Negative for: Fever, Chills Cardiovascular: Negative for: Chest Pain, Palpitations Respiratory: Negative for: Cough, Shortness of Breath Gastrointestinal: Negative for: Nausea, Vomiting, Abdominal Pain, Diarrhea Skin: Negative for: Rash, Lesions, Jaundice, Bruising Neurological: Negative for: Weakness, Numbness Psych: Positive for: Other (EtOH intoxicated ). Negative for: Suicidal ideation Physical Exam - Physical Exam Appears: Non-toxic, No Acute Distress Skin: Warm, Dry, Ecchymosis (over right eyelid and nasal bridge ) Head: Normacephalic Eye(s): bilateral: Normal Inspection Oral Mucosa: Moist Neck: Supple Chest: Symmetrical, No Deformity, No Tenderness Cardiovascular: Rhythm Regular, No Murmur Respiratory: Normal Breath Sounds, No Rales, No Rhonchi, No Wheezing Extremity: Normal ROM, Capillary Refill (less than 2 seconds ) Neurological/Psych: Other (awake, alert and arousable to touch and verbal stimuli ) Gait: Unsteady ED Course And Treatment O2 Sat by Pulse Oximetry: 97 (on RA ) Pulse Ox Interpretation: Normal Reevaluation Time: 06:02 Reassessment Condition: Improved Disposition Counseled Patient/Family Regarding: Studies Performed, Diagnosis - Disposition Referrals: [facility] [Outside] Disposition: HOME/ ROUTINE Disposition Time: 20:57 Condition: FAIR Instructions: Alcohol Abuse and Alcoholism (DC) Forms: [employer] (Cook Islander) - Clinical Impression Clinical Impression: Alcohol intoxication, Alcohol abuse - Scribe Statement The provider has reviewed the documentation as recorded by the Scribe (Kate Mai) Provider Attestation: All medical record entries made by the Scribe were at my direction and personally dictated by me. I have reviewed the chart and agree that the record accurately reflects my personal performance of the history, physical exam, medical decision making, and the department course for this patient. I have also personally directed, reviewed, and agree with the discharge instructions and disposition.
[2017-06-11 02:33] VITALS: RESP 18
[2017-06-11 06:21] VITALS: BP 125/71; PULSE 81; TEMP 98; O2SAT 96
== END 2017-06-11 06:27 | disposition home or self-care (01) ==
LOC: SUPCPDRO 20:38 → C.ER 20:38
DX: F10.129 Alcohol abuse with intoxication, unspecified (principal); Y90.9 Presence of alcohol in blood, level not specified

== ENCOUNTER 2017-06-11 13:30 | Emergency (ER) | payer SELFPAY ==
[2017-06-11 14:04] VITALS: BP 144/94; PULSE 92; RESP 16; TEMP 98; O2SAT 98
== END 2017-06-11 13:58 | disposition left against medical advice (07) ==
LOC: C.ER 13:30
DX: Z02.89 Encounter for other administrative examinations (principal); F19.10 Other psychoactive substance abuse, uncomplicated

== ENCOUNTER 2018-01-07 18:35 | Emergency (ER) | payer SELFPAY ==
[2018-01-07 18:54] VITALS: RESP 16
--- NOTE | 2018-01-07 19:46 | C.PDOC ---
History Of Present Illness 52 y/o male is brought to ED via bls after being found on the street for public intoxication. Pt is well known to ED staff for multiple prior visits for similar reasons. Denies any physical complaints at this time. Chief Complaint (Nursing): Substance Abuse History Per: Patient History/Exam Limitations: intoxication Past Medical History Reviewed: Historical Data, Nursing Documentation, Vital Signs Vital Signs: Last Vital Signs Temp 98.4 F 01/07/18 18:53 Pulse 90 01/07/18 18:53 Resp 16 01/07/18 18:53 BP 145/97 H 01/07/18 18:53 Pulse Ox 98 01/07/18 18:53 - Medical History PMH: Asthma, Atrial Fibrillation, HTN (NO MEDS PER PT) Denies: Chronic Kidney Disease Surgical History: Appendectomy, Tonsillectomy Family History: States: Unknown Family Hx - Social History Hx Tobacco Use: Yes Hx Alcohol Use: Yes Hx Substance Use: No - Immunization History Hx Tetanus Toxoid Vaccination: No Hx Influenza Vaccination: No Hx Pneumococcal Vaccination: No Review Of Systems Except As Marked, All Systems Reviewed And Found Negative. Constitutional: Negative for: Fever, Chills Cardiovascular: Negative for: Chest Pain, Palpitations Respiratory: Negative for: Cough, Shortness of Breath Gastrointestinal: Negative for: Nausea, Vomiting, Abdominal Pain Neurological: Negative for: Headache, Dizziness Physical Exam - Physical Exam Appears: Non-toxic, No Acute Distress Skin: Normal Color, Warm, Dry Head: Atraumatic, Normacephalic Eye(s): bilateral: Normal Inspection Oral Mucosa: Moist, Other (EtOH on breath) Neck: Supple Cardiovascular: Rhythm Regular, No Murmur Respiratory: Normal Breath Sounds, No Rales, No Rhonchi, No Wheezing Gastrointestinal/Abdominal: Soft, No Tenderness Extremity: Normal ROM Neurological/Psych: Oriented x3, Normal Speech ED Course And Treatment O2 Sat by Pulse Oximetry: 98 (RA) Pulse Ox Interpretation: Normal Disposition - Disposition Referrals: Alcoholics Anonymous [Outside] [facility] [Outside] [facility] [Outside] Disposition: HOME/ ROUTINE Disposition Time: 23:40 Condition: IMPROVED Additional Instructions: MEGAN HASKINS, thank you for letting us take care of you today. Your provider was Primo England DO and you were treated for SUBSTANCE ABUSE. The emergency medical care you received today was directed at your acute symptoms. If you were prescribed any medication, please fill it and take as directed. It may take several days for your symptoms to resolve. Return to the Emergency Department if your symptoms worsen, do not improve, or if you have any other problems. Please contact your doctor or call one of the physicians/clinics you have been referred to that are listed on the Patient Visit Information form that is included in your discharge packet. Bring any paperwork you were given at disch arge with you along with any medications you are taking to your follow up visit. Our treatment cannot replace ongoing medical care by a primary care provider outside of the emergency department. Thank you for allowing the [facility] team to be part of your care today. Follow up with the clinic this week for outpatient care and management. Instructions: Alcohol Abuse and Alcoholism (DC) Forms: [facility] (Persian) - Clinical Impression Clinical Impression: Alcohol abuse - Scribe Statement The provider has reviewed the documentation as recorded by the Scribe KP All medical record entries made by the Scribe were at my direction and personally dictated by me. I have reviewed the chart and agree that the record accurately reflects my personal performance of the history, physical exam, medical decision making, and the department course for this patient. I have also personally directed, reviewed, and agree with the discharge instructions and disposition.
[2018-01-08 03:12] VITALS: TEMP 98.6
[2018-01-08 05:29] VITALS: BP 134/85; PULSE 87; O2SAT 98
== END 2018-01-08 05:28 | disposition home or self-care (01) ==
LOC: C.ER 18:35
DX: F10.10 Alcohol abuse, uncomplicated (principal); I10 Essential (primary) hypertension; I48.91 Unspecified atrial fibrillation; Z72.0 Tobacco use